=== PATIENT | female | born 1940 | race Caucasian/White ===

== ENCOUNTER 2018-09-03 18:03 | Observation (INO) ==
--- NOTE | 2018-09-03 18:44 | Emergency Department Note ---
Addendum entered and electronically signed by BRITTANI Peterson 09/03/18 20:06: Patient was set for discharge, but had severe pain when placing immobilizer and was unable to bear any weight on leg or tolerate any movement. Decision was made to admit for pain control. Spoke with Dr Paige and Dr Ram, as well as Allyson Naqvi in care management. [place]: [facility] [place] Clinical Impression: Left patella fracture Qualifiers: Encounter type: initial encounter Fracture type: closed Fracture morphology: transverse Fracture alignment: displaced Qualified Code(s): S82.032A - Displaced transverse fracture of left patella, initial encounter for closed fracture Disposition: Home, Self-Care Condition on Discharge: Good Instructions: DI for Patella Fracture Referrals: Wenceslao Moseley MD [Primary Care Provider] - Charley Nicole MD [Staff Physician] - Time of Disposition: 19:29 Medical Decision Making - Adrian Inquiry Pt receiving controlled substance: No Vital Signs: 09/03/18 18:16 09/03/18 18:27 Temperature 97.9 F 97.9 F Temperature Source Tympanic Tympanic Pulse Rate [Right Radial] 88 88 Respiratory Rate 16 16 Blood Pressure [Right Arm] 149/94 H 149/94 H Blood Pressure Mean [Right Arm] 112 112 Blood Pressure Source [Right Arm] Automatic Cuff Blood Pressure Position [Right Arm] Sitting 02 Sat by Pulse Oximetry 98 98 Oxygen Delivery Method Room Air Room Air Orders (Tests/Meds): ORDERS Category Date Time Status XR knee LT 3V Stat Exams 09/03/18 18:27 Taken - Radiology Data #1 Image(s): Knee Image Reviewed: Yes I reviewed the patient's radiology image, Yes I reviewed the patient's radiology image w/the ED provider fracture patella - Physician Consults Physician Consulted: Bonnie Time: 19:10 Reason -: Orthopedic Eval/Care Comment/Response: Will see patient Wednesday [facility] [place] - General Stated complaint: AO [id number] @1630 L Knee Time Seen by Provider: 09/03/18 19:00 Mode of Arrival: Family Vehicle Source of Information: Patient Limitations: No Limitations Description of Symptoms (Recalled from Triage Doc. by RN): pt states she was looking at recipes in her kitchen and turned and fell on her left knee. pt reports pain with weight bearing. HEENT Symptoms (Recalled from RN notes): No Resp Symptoms (Recalled from RN notes): No Skin Symptoms (Recalled from RN notes): No MS Symptoms (Recalled from RN notes): Yes Functional Status (Recalled from RN notes): N/A - History of Present Illness Provider Complaint: Left knee pain since 1629 - looking at recipes, turned and fell on left knee. Has injured left knee a few times over the past 2 years. Onset (ago): hour(s) (3) Location: left, lower extremity Relieving factors: immobilization Exacerbating factors: movement Treatments prior to arrival: NSAID - Related Data Allergies Allergy/AdvReac Type Severity Reaction Status Date / Time No Known Allergies Allergy Verified 09/03/18 18:30 - Worker's Comp Is this a Worker's Comp case?: No [facility] History - Hepatitis A Screen Drug use history?: No High risk sexual behaviors?: No History of sexually transmitted infection?: No Currently employed?: No Childcare worker?: No Do you have indoor plumbing?: Yes Do you have electricity?: Yes Attestation statement:: This patient has been screened for Hepatitis A risk factors. I have reviewed the patient's past medical history: Yes Other Surgeries: Yes: No Previous Surgery - Social History Smoking Status: Never smoker Alcohol Intake: never Substance Use Type: denies use Occupational Status: retired Housing: house Household Members: family - Psychiatric History Expresses thoughts of harming self/others: None Suicide Plan Description: No Plan Family Hx:: No significant family history ROS Obtained: Yes All systems reviewed & no additional complaints - Musculoskeletal Musculoskeletal: Reports joint pain Physical Exam - General General appearance: alert, in no apparent distress - Head Head exam: atraumatic, normocephalic - Respiratory Respiratory exam: Present: normal lung sounds bilaterally. Absent: respiratory distress - Cardiovascular Cardiovascular exam: Present: regular rate, normal rhythm - Expanded Lower Extremity Exam Left Knee exam: Present: tenderness, swelling, ecchymosis - Neurological Exam Neurological exam: Present: alert, oriented X3 - Psychiatric Psychiatric exam: Present: normal affect, normal mood - Skin Skin exam: Present: warm, dry
[2018-09-03 22:04] LABS: Basophils % 0.3 % (0.1-2.0); Eosinophils % 0.3 % (0.1-12.0); Hemoglobin 11.9 g/dL (12.2-16.2); Lymphocytes # 1.4 K/mm3 (0.7-4.5); Mean Corpuscular Hemoglobin 29.4 pg (27.0-31.2); Mean Corpuscular Volume 89.1 fl (81-99); Mean Platelet Volume 7.4 fl (7.4-10.4); Monocytes # 0.3 K/mm3 (0.1-1.0); Monocytes % 4.1 % (1.7-9.3); Neutrophils # 6.5 K/mm3 (1.8-7.8); Neutrophils % 78.4 % (37.0-80.0); Platelet Count 312 K/mm3 (142-424); Red Blood Count 4.04 M/mm3 (4.20-5.40); Red Cell Distribution Width 13.5 % (11.5-17.5); White Blood Count 8.3 K/mm3 (4.8-10.8)
[2018-09-03 22:14] LABS: INR 0.97 (0.9-1.1)
--- NOTE | 2018-09-04 08:41 | History & Physical Report ---
*Admission Date: 09/03/18 *Chief complaint: left patellar fracture *History of present illness: Ms. bender is a 77-year-old white female who has generally been in good health. She takes no prescription medications on a regular basis. She was preparing a meal at home last night when she turned in the kitchen, lost her balance and fell landing on her left knee. She did not feel dizzy or lightheaded. She denies chest pain or palpitations prior to falling. She was unable to get up on her own. Her family called the ambulance and she was brought to the urgent treatment center. She was assessed and x-rays confirmed a mildly displaced left patellar fracture. She was having significant pain and her family did not feel they could care for her at home therefore she was admitted for pain management and orthopedic consultation. At the time of my exam this morning, she states she rested fairly well last night with morphine. Her knee is in an immobilizer and pain seems to be controlled. [facility] History Medical History: Denies:: Cancer, Chronic Obstructive Pulmonary Disease (COPD), Deep Vein Thrombosis, Diabetes Mellitus Type 2, MRSA, Peripheral Vascular Disease Have you ever received a pneumonia vaccine?: Yes Have you received a flu vaccine this season?: Yes Other Medical History: Denies: Anemia, Thyroid Disease Laterality Cases: Left: Other (ORIF left ankle fracture) Other Surgeries: Yes: , Other (Left mastoid surgery as a child) Amputation: No Fractures: No - *Social History Educational Level: Completed High School Smoking Status: Never smoker Alcohol Intake: never Substance Use Type: denies use Occupational Status: retired Housing: house Household Members: family Travel in the last 8 weeks: None - Psychiatric History Expresses thoughts of harming self/others: None Suicide Plan Description: No Plan *Family Hx:: No significant family history Review of Systems - Constitutional Denies fatigue, Denies headache(s), Denies weight gain, Denies weight loss - Eyes Denies change in vision - ENT Reports nasal discharge (seasonal allergies), Denies dizziness, Denies hearing loss - *Cardiovascular Denies chest pain, Denies shortness of breath, Denies irregular heart rhythm, Denies leg swelling - *Respiratory Denies chest congestion, Denies cough - *Gastrointestinal Denies abdominal pain, Denies change in bowel habits, Denies difficulty swallowing, Denies nausea - *Genitourinary Denies abnormal vaginal bleeding, Denies urinary incontinence, Denies vaginal discharge - *Musculoskeletal Denies joint pain, Denies joint swelling, Denies muscle weakness - Integumentary/Breasts Denies hair loss, Denies yellowing of the skin, Denies unusual bruising - *Neurologic Denies dizziness, Denies loss of vision, Denies tingling/numbness/burning sensations - Psychiatric Denies anxiety, Denies depression, Denies memory loss - Endocrine Denies cold intolerance, Denies heat intolerance - Hematologic/Lymphatic Denies easy bruising - Allergic/Immunologic Reports seasonal runny nose, Denies itchy eyes, Denies hives, Denies wheezing Meds Allergies Allergy/AdvReac Type Severity Reaction Status Date / Time No Known Allergies Allergy Verified 09/03/18 18:30 Exam Vital signs and Labs for Last 24 Hours: Temp Pulse Resp BP Pulse Ox 98.4 F 83 16 108/58 L 98 09/04/18 08:00 09/04/18 08:00 09/04/18 08:00 09/04/18 08:00 09/04/18 08:00 Laboratory Results - last 24 hr 09/03/18 21:50: WBC 8.3, RBC 4.04 L, Hgb 11.9 L, Hct 36.0 L, MCV 89.1, MCH 29.4, MCHC 33.0, RDW 13.5, Plt Count 312, MPV 7.4, Neut % (Auto) 78.4, Lymph % (Auto) 17.0, Sequoyah % (Auto) 4.1, Eos % (Auto) 0.3, Baso % (Auto) 0.3, Neut # (Auto) 6.5, Lymph # (Auto) 1.4, Sequoyah # (Auto) 0.3, Eos # (Auto) 0.0, Baso # (Auto) 0.0 09/03/18 21:50: PT 10.0, INR 0.97 I & O for Last 24 hours: Intake & Output 09/01/18 09/02/18 09/03/18 09/04/18 11:59 11:59 11:59 11:59 Output Total 200 / 200 Balance -200 / -200 Weight 121 lb 4 oz Narrative: She is sitting up in bed and appears in no acute distress. She is alert and oriented to person place and time. HEENT shows a cranium to be atraumatic and normocephalic. Sclerae and conjunctive are clear. Nares patent. Oropharynx is clear. Mucous membranes are moist. Neck is supple with no masses, thyromegaly, or bruits. Lungs are clear to auscultation. Heart is regular with no ectopy. Abdomen is soft and nondistended with no unusual masses or tenderness. Lower extremities show the left leg in a knee immobilizer. No pedal edema. Assessment and Plan (1) Left patella fracture Current visit: Yes Status: Acute Qualifiers: Encounter type: initial encounter Fracture type: closed Fracture morphology: transverse Fracture alignment: displaced Qualified Code(s): S82.032A - Displaced transverse fracture of left patella, initial encounter for closed fracture Category: Medical Code(s): S82.002A - Unspecified fracture of left patella, initial encounter for closed fracture - Assessment and plan all Dx Assessment and Plan for all problems:: She is admitted for pain management and seems to be comfortable with current treatment. Will start Lovenox for DVT prophylaxis. She will remain in the knee immobilizer and will obtain orthopedic consult for further recommendations.
[2018-09-04 09:29] LABS: Anion Gap 12.6 mEq/L (5-15); Calcium 8.7 mg/dL (8.5-10.1); Potassium 3.6 mmoL/L (3.5-5.1)
--- NOTE | 2018-09-04 11:10 | Consult Report ---
*Admission Date: 09/03/18 *Chief complaint: L knee pain, inability to ambulate *History of present illness: 77yo F s/p fall yesterday at home, now with L knee pain and inability to ambulate. She was standing in her kitchen looking at recipes, when she turned and fell onto the left knee. She had no preceding dizziness/lightheadedness, no chest pain or shortness of breath. It appears the knee gave out and she landed directly onto the patella. She has fallen on that knee a handful of times in the past few years, but has not sustained a significant injury until now. Pain is localized to the anterior aspect of the left knee, with an effusion. No ecchymosis, abrasions or other skin lesions/open wounds. Denies numbness or tingling in the LLE, no pain in any other extremity. She did not hit her head or have LOC. She is otherwise healthy and takes no prescription medications; she only takes vitamins. She is a non-smoker and does not consume alcohol or illicit drugs. She denies medication allergies that she is aware of. She lives with her son and [id number], in a furnished in-law suite in their basement. She has a fully-functioning apartment down there, all on one level, with her own separate entrance. She says there are no steps to get into her apartment. She helps babysit her grandchildren while their parents work, and is concerned about their ability to care for her during her recovery, as they both work full-time jobs. Review of Systems - Review of Systems Review of systems:: pertinent systems reviewed and negative unless documented below [facility] History Medical History: Denies:: Cancer, Diabetes Mellitus Type 1, Diabetes Mellitus Type 2, MRSA Have you ever received a pneumonia vaccine?: Yes Have you received a flu vaccine this season?: Yes Comment:: seasonal allergies Laterality Cases: Left: Other Other Surgeries: Yes: Other (Left ankle hardward placement and removal) Amputation: No Fractures: Yes (surgery for ankle fracture with later removal of hardware) - *Social History Educational Level: Completed High School Smoking Status: Never smoker Alcohol Intake: never Substance Use Type: denies use Occupational Status: retired Housing: house Household Members: family Travel in the last 8 weeks: None - Psychiatric History Expresses thoughts of harming self/others: None Suicide Plan Description: No Plan *Family Hx:: No significant family history Meds Allergies Allergy/AdvReac Type Severity Reaction Status Date / Time No Known Allergies Allergy Verified 09/03/18 18:30 Exam Vital signs and Labs for Last 24 Hours: Temp Pulse Resp BP Pulse Ox 98.4 F 83 16 108/58 L 98 09/04/18 08:00 09/04/18 08:00 09/04/18 08:00 09/04/18 08:00 09/04/18 08:00 Laboratory Results - last 24 hr 09/03/18 21:50: WBC 8.3, RBC 4.04 L, Hgb 11.9 L, Hct 36.0 L, MCV 89.1, MCH 29.4, MCHC 33.0, RDW 13.5, Plt Count 312, MPV 7.4, Neut % (Auto) 78.4, Lymph % (Auto) 17.0, Esmeralda % (Auto) 4.1, Eos % (Auto) 0.3, Baso % (Auto) 0.3, Neut # (Auto) 6.5, Lymph # (Auto) 1.4, Esmeralda # (Auto) 0.3, Eos # (Auto) 0.0, Baso # (Auto) 0.0 09/03/18 21:50: PT 10.0, INR 0.97 09/04/18 09:16: Sodium 142, Potassium 3.6, Chloride 106, Carbon Dioxide 27, Anion Gap 12.6, BUN 14, Creatinine 0.94, Estimated Creat Clear 42, Estimated GFR 58 L, Est GFR ( Amer) 70, Glucose 105, Calcium 8.7 I & O for Last 24 hours: Intake & Output 09/01/18 09/02/18 09/03/18 09/04/18 11:59 11:59 11:59 11:59 Intake Total 60 / 60 Output Total 200 / 200 Balance -140 / -140 Weight 121 lb 4 oz - Constitutional no acute distress, average body habitus, cooperative - *Routine HEENT Exam Head: Present: normocephalic, atraumatic Eye: Present: EOMI ENT: Present: mucous membranes moist - *Routine Neck Exam Present: supple - *Routine Respiratory Exam Present: CTA bilaterally. Absent: accessory muscle use, wheezes - *Routine Cardiovascular Exam Present: RRR - *Routine Abdominal Exam Present: soft. Absent: tenderness - *Routine Extremities Exam Present: pulses intact, normal capillary refill, joint swelling. Absent: full ROM, calf tenderness Comments: LLE: L knee effusion (hemarthrosis); no skin lesions, ecchymosis, lacerations/abrasions or other open wounds unable to perform a L straight leg raise; extensor mechanism is disrupted exquisitely tender over L patella, with palpable defect in the bone +DF/PF/EHL LLE L calf soft, non-tender SILT distally LLE in all distributions palpable pedal pulses LLE, foot warm with BCR - *Routine Skin Exam Present: intact, warm. Absent: erythema, lesions, wounds, ecchymosis - *Routine Neurological Exam Present: alert, oriented X3, normal tone, vision grossly intact, hearing grossly intact. Absent: sensory deficit, motor deficit, altered mental status - Routine Psychiatric Exam Present: normal affect, normal thought process, cooperative, good insight, good judgment Results - Labs Result Diagrams: 09/03/18 21:50 09/04/18 09:16 Labs: Abnormal lab results 09/03/18 09/04/18 Range/Units 21:50 09:16 RBC 4.04 L (4.20-5.40) M/mm3 Hgb 11.9 L (12.2-16.2) g/dL Hct 36.0 L (37.0-47.0) % Estimated GFR 58 L (>60) ml/min H & H 09/03/18 Range/Units 21:50 Hgb 11.9 L (12.2-16.2) g/dL Hct 36.0 L (37.0-47.0) % Coagulation 09/03/18 Range/Units 21:50 INR 0.97 (0.9-1.1) All other labs normal. - Diagnostic results Knee x-ray: report reviewed, image reviewed (transverse fracture of patella with mild displacement of fragments) Assessment and Plan (1) Left patella fracture Current visit: Yes Status: Acute Qualifiers: Encounter type: initial encounter Fracture type: closed Fracture morphology: transverse Fracture alignment: displaced Qualified Code(s): S82.032A - Displaced transverse fracture of left patella, initial encounter for closed fracture Category: Medical Code(s): S82.002A - Unspecified fracture of left patella, initial encounter for closed fracture - Assessment and plan all Dx Assessment and Plan for all problems:: 77yo F with L patella fracture, mildly displaced, with disruption of extensor mechanism (i.e. cannot perform straight leg raise) -- the fracture is displaced, and although not by much, she cannot perform a straight leg raise and I do not believe this will heal well non-operatively; even if it does, it will likely be a fibrous non-union and/or the patient will have persistent extensor mechanism dysfunction. I am recommending ORIF, to be done tomorrow. I discussed the procedure with the patient, including the risks, which include: bleeding, infection, wound healing complications, non-union, hardware failure, persistent knee pain/leg weakness, painful hardware that may necessitate later removal, and the risks of anesthesia. The patient vocalized understanding and would like to proceed with surgery. -- NPO after midnight -- stop lovenox in the morning; i.e. hold after tonight's dose -- Ancef 1g on hold to OR -- am labs -- dispo planning: will likely need placement post-op for PT/OT and fci care
--- NOTE | 2018-09-04 14:13 | Pharmacy Consult Notes ---
[facility] Pharmacy VTE Monitoring - Patient Demographics Admission date: 09/03/18 Report Date: 09/04/18 Time: 14:12 Allergies/Adverse Reactions: Patient Allergies No Known Allergies Allergy (Verified 09/03/18 18:30) Height: 1.65 m Weight: 54.998 kg Patient Problems: Current Active Problems Left patella fracture (Acute) - VTE Risk Labs: VTE Related Lab Results Hgb 11.9 g/dL (12.2-16.2) L 09/03/18 21:50 Hct 36.0 % (37.0-47.0) L 09/03/18 21:50 Plt Count 312 K/mm3 (142-424) 09/03/18 21:50 PT 10.0 seconds (9.4-11.8) 09/03/18 21:50 INR 0.97 (0.9-1.1) 09/03/18 21:50 BUN 14 mg/dL (7-18) 09/04/18 09:16 Creatinine 0.94 mg/dL (0.55-1.02) 09/04/18 09:16 Estimated Creat Clear 42 mL/min (50-200) 09/04/18 09:16 Was VTE Risk Assessment Performed: No VTE Score: 1 - Prophylaxis VTE Prophylaxis Ordered?: Yes Types of VTE Prophylaxis: IPCS Thigh High Location of Applied Device: Bilateral Lower Extremeties
[2018-09-05 06:34] LABS: Anion Gap 10.6 mEq/L (5-15); Calcium 8.2 mg/dL (8.5-10.1); Potassium 3.6 mmoL/L (3.5-5.1)
[2018-09-05 06:35] LABS: Activated Partial Thrombo Time 25.1 seconds (23.6-34.0); INR 0.95 (0.9-1.1); Prothrombin Time 9.8 seconds (9.4-11.8)
[2018-09-05 06:40] LABS: Basophils % 0.8 % (0.1-2.0); Eosinophils # 0.2 K/mm3 (0.0-0.4); Eosinophils % 3.5 % (0.1-12.0); Hemoglobin 10.5 g/dL (12.2-16.2); Lymphocytes # 1.6 K/mm3 (0.7-4.5); Lymphocytes % 32.4 % (10-50); Mean Corpuscular HGB Conc 31.8 g/dL (31.8-35.4); Mean Corpuscular Volume 91.3 fl (81-99); Monocytes # 0.3 K/mm3 (0.1-1.0); Monocytes % 5.4 % (1.7-9.3); Neutrophils # 2.9 K/mm3 (1.8-7.8); Neutrophils % 57.8 % (37.0-80.0); Platelet Count 240 K/mm3 (142-424); Red Blood Count 3.62 M/mm3 (4.20-5.40); Red Cell Distribution Width 13.5 % (11.5-17.5)
--- NOTE | 2018-09-05 08:07 | Progress Note ---
<Jayla Doyle - Last Filed: 09/05/18 08:03> Internal Medicine - PN: Subj *Date: 09/05/18 *Time: 08:03 Interval history: Patient is having surgery today. She slept like last night. Pain in left knee with any movement. She does get up and down to the commode and states the pain is excruciating when this. She is eating without problems. She has no shortness of breath or chest pain. Exam Vital signs and Labs for Last 24 Hours: Temp Pulse Resp BP Pulse Ox 97.8 F 66 18 142/67 H 99 09/05/18 07:28 09/05/18 07:28 09/05/18 07:28 09/05/18 07:28 09/05/18 07:28 Laboratory Results - last 24 hr 09/04/18 09:16: Sodium 142, Potassium 3.6, Chloride 106, Carbon Dioxide 27, Anion Gap 12.6, BUN 14, Creatinine 0.94, Estimated Creat Clear 42, Estimated GFR 58 L, Est GFR ( Amer) 70, Glucose 105, Calcium 8.7 09/04/18 11:49: Blood Type O Positive, Antibody Screen Negative 09/05/18 06:08: WBC 5.0 D, RBC 3.62 L, Hgb 10.5 L, Hct 33.0 L, MCV 91.3, MCH 29.0, MCHC 31.8, RDW 13.5, Plt Count 240, MPV 7.0 L, Neut % (Auto) 57.8, Lymph % (Auto) 32.4, Beauregard % (Auto) 5.4, Eos % (Auto) 3.5, Baso % (Auto) 0.8, Neut # (Auto) 2.9, Lymph # (Auto) 1.6, Beauregard # (Auto) 0.3, Eos # (Auto) 0.2, Baso # (Auto) 0.0 09/05/18 06:08: PT 9.8, INR 0.95, APTT 25.1 09/05/18 06:08: Sodium 141, Potassium 3.6, Chloride 108 H, Carbon Dioxide 26, Anion Gap 10.6, BUN 14, Creatinine 0.74 D, Estimated Creat Clear 42, Estimated GFR 77, Est GFR ( Amer) 93 D, Glucose 89, Calcium 8.2 L I & O for Last 24 hours: Intake & Output 09/02/18 09/03/18 09/04/18 09/05/18 11:59 11:59 11:59 11:59 Intake Total 60 / 60 1200 / 1200 Output Total 200 / 200 200 / 200 Balance -140 / -140 1000 / 1000 Weight 121 lb 4 oz 121 lb 4 oz - Constitutional no acute distress - *Routine Respiratory Exam Present: CTA bilaterally (Anteriorly and posteriorly) - *Routine Cardiovascular Exam Present: RRR - *Routine Abdominal Exam Present: soft, normoactive bowel sounds. Absent: tenderness - *Routine Extremities Exam Absent: edema Comments: Leg edema. Moves toes left lower extremity without difficulty. He is to have brace on left knee with elevation and ice. - *Routine Neurological Exam Present: alert, oriented X3 Assessment and Plan (1) Left patella fracture Current visit: Yes Status: Acute Qualifiers: Encounter type: initial encounter Fracture type: closed Fracture morphology: transverse Fracture alignment: displaced Qualified Code(s): S82.032A - Displaced transverse fracture of left patella, initial encounter for closed fracture Category: Medical Code(s): S82.002A - Unspecified fracture of left patella, initial encounter for closed fracture - Assessment and plan all Dx Assessment and Plan for all problems:: Surgery is planned by Dr. Nicole today. Maintain comfort. <Wenceslao Moseley - Last Filed: 09/05/18 08:18> Exam Vital signs and Labs for Last 24 Hours: Temp Pulse Resp BP Pulse Ox 97.8 F 66 18 142/67 H 99 09/05/18 07:28 09/05/18 07:28 09/05/18 07:28 09/05/18 07:28 09/05/18 07:28 Laboratory Results - last 24 hr 09/04/18 09:16: Sodium 142, Potassium 3.6, Chloride 106, Carbon Dioxide 27, Anion Gap 12.6, BUN 14, Creatinine 0.94, Estimated Creat Clear 42, Estimated GFR 58 L, Est GFR ( Amer) 70, Glucose 105, Calcium 8.7 09/04/18 11:49: Blood Type O Positive, Antibody Screen Negative 09/05/18 06:08: WBC 5.0 D, RBC 3.62 L, Hgb 10.5 L, Hct 33.0 L, MCV 91.3, MCH 29.0, MCHC 31.8, RDW 13.5, Plt Count 240, MPV 7.0 L, Neut % (Auto) 57.8, Lymph % (Auto) 32.4, Beauregard % (Auto) 5.4, Eos % (Auto) 3.5, Baso % (Auto) 0.8, Neut # (Auto) 2.9, Lymph # (Auto) 1.6, Beauregard # (Auto) 0.3, Eos # (Auto) 0.2, Baso # (Auto) 0.0 09/05/18 06:08: PT 9.8, INR 0.95, APTT 25.1 09/05/18 06:08: Sodium 141, Potassium 3.6, Chloride 108 H, Carbon Dioxide 26, Anion Gap 10.6, BUN 14, Creatinine 0.74 D, Estimated Creat Clear 42, Estimated GFR 77, Est GFR ( Amer) 93 D, Glucose 89, Calcium 8.2 L I & O for Last 24 hours: Intake & Output 09/02/18 09/03/18 09/04/18 09/05/18 11:59 11:59 11:59 11:59 Intake Total 60 / 60 1200 / 1200 Output Total 200 / 200 200 / 200 Balance -140 / -140 1000 / 1000 Weight 121 lb 4 oz 121 lb 4 oz Assessment and Plan (1) Left patella fracture Current visit: Yes Status: Acute Qualifiers: Encounter type: initial encounter Fracture type: closed Fracture morphology: transverse Fracture alignment: displaced Qualified Code(s): S8 2.032A - Displaced transverse fracture of left patella, initial encounter for closed fracture Category: Medical Code(s): S82.002A - Unspecified fracture of left patella, initial encounter for closed fracture - Assessment and plan all Dx Assessment and Plan for all problems:: Patient seen and examined. Concur with above assessment. She is comfortable at rest. She is an acceptable medical risk to proceed with surgery today.
--- NOTE | 2018-09-05 15:09 | Progress Note ---
[facility] Anesthesia Checklist - Patient Identification Patient Identification: Arm Band - Structural Data Admitted From: Inpatient Planned Operative Procedure/s: orif left patella Consent for Planned Operative Procedure(s) Verified: Yes Verified Documents: Surgical Consent, History and Physical - NPO Status Verified Time NPO: 00:00 - Additional verifications Anesthesia Reactions: No - Airway Assessment C-Spine Mobility Assessed: Yes (mp2) TMJ Mobility Assessed: Yes Dentition: Poor Dentition (risks of dental damage explained to pt) - Neurological Assessment Level of Consciousness: Awake, Alert - Anesthesia Plan Anesthesia Risk discussed: Yes Anesthesia Plan: Verified ASA Class: II Anesthesia Type: General (with Femoral Nerve Block) [facility] History I have reviewed the patient's past medical history: Yes Medical History: Denies:: Cancer, Chronic Obstructive Pulmonary Disease (COPD), Deep Vein Thrombosis, Diabetes Mellitus Type 1, Diabetes Mellitus Type 2, MRSA, Peripheral Vascular Disease Have you ever received a pneumonia vaccine?: Yes Have you received a flu vaccine this season?: Yes Other Medical History: Denies: Anemia, Thyroid Disease Laterality Cases: Left: Other (ORIF left ankle fracture) Other Surgeries: Yes: , Other (Left mastoid surgery as a child) Amputation: No Fractures: No - *Social History Educational Level: Completed High School Smoking Status: Never smoker Alcohol Intake: never Substance Use Type: denies use Occupational Status: retired Housing: house Household Members: family Travel in the last 8 weeks: None - Psychiatric History Expresses thoughts of harming self/others: None Suicide Plan Description: No Plan *Family Hx:: No significant family history
--- NOTE | 2018-09-05 18:44 | Progress Note ---
[facility] Anesthesia Record Part II Discharge Time: 17:10 Destination: 2nd floor PACU nurse assessment reviewed?: Yes Patient Condition:: Good Anesthesia Complications:: None Swallowing reflex intact?: Yes Cyanosis?: No
--- NOTE | 2018-09-05 18:44 | Progress Note ---
[facility] Anesthesia Record Part I Intake, IV Amount: 1,600 Estimated blood loss (mL): 50 Urine output (mL): 0 Blood Pressure: 143/71 SaO2: 95 Pulse Rate: 72 Respiratory Rate: 16 Temperature: 98.6 F Patient is:: Drowsy, Stable Stable to PACU at:: 18:40
--- NOTE | 2018-09-05 22:55 | Operative Note ---
Date of procedure: 09/05/18 Pre-op Diagnosis:: Left patella fracture Post-op Diagnosis:: Left patella fracture Procedure performed:: ORIF left patella fracture Surgeon:: Charley Nicole MD Assessment Services Manager(s):: Nolan Graham SHIFT PRODUCTION SUPERVISOR:: Chris Pantoja Anesthesia: GETA, regional Estimated blood loss (mL): 50 Clinical Note:: 77-year-old female who sustained a mechanical fall at home on the evening of 09/03/2017. She was in her kitchen looking at recipes when she turned and the left knee gave out. She landed directly on the flexed left knee, fracturing her patella. This was a transverse, complete fracture of the patella with mild displacement of both fragments and disruption of the extensor mechanism. She was unable to perform even a partial straight leg raise. I discussed treatment options with her including both nonoperative and operative treatment, and my recommendation was that we proceed with ORIF. I felt this was the best way to restore her extensor mechanism and allow her to regain use of her previously asymptomatic knee. She is in excellent health and takes no daily medications, only vitamins. I discussed the risks of surgery including bleeding, infection, nonunion, symptomatic hardware or hardware failure, need for further surgery including possible need for hardware removal if symptomatic, possibility of persistent weakness or limp after surgery, and risks of anesthesia. The patient vocalized understanding and provided informed consent for the procedure. Operative findings:: Transverse fracture of left patella Operative note:: The patient was identified in preoperative holding and the left knee signed by myself. I reviewed the consent and verified the procedure with the patient, answering any questions. Femoral nerve block was then performed to the left lower extremity by anesthesia. The patient was then transferred to the operat ing room placed supine on the OR table. 1 g of Ancef was infused intravenously and general anesthesia induced. Once the patient was anesthetized, a nonsterile tourniquet was placed on the upper left thigh. The left lower extremity was then prepped and draped in the usual sterile fashion for surgery of the left knee. Timeout was performed, identifying the correct patient, correct procedure, and correct site. The procedure was begun by first exsanguinating the left lower extremity and elevating the tourniquet to 325 mmHg. Once the tourniquet was inflated, a longitudinal incision was made down the anterior aspect of the left knee, centered over the patella and extending from 2 fingerbreadths superior to the patella and extending to the tibial tubercle. The incision was made with a #10 scalpel, incising only the skin. Once the skin had been incised, the superficial tissue was identified and it was immediately evident that the extensor retinaculum was intact. The patella was palpated, and a transverse fracture obvious. Limited flaps were raised medially and laterally, exposing the entire extensor mechanism including the patella, the medial lateral retinaculum, and the quadriceps and patellar tendons. [place] elevator was inserted into the fracture site and this easily penetrated into the joint. Using a tissue forceps and fresh 15 blade, the retinaculum was incised directly over the fracture site and carried medially and laterally, opening up the fracture site. The retinaculum was opened to an extent both medially and laterally to the patella, and this enabled me to open the fracture site and examined the articular surface of the patella. All cartilage on the articular surface was intact and the joint appeared in very good condition. From this position I was able to suction all hemarthrosis from the knee, which was mild. The joint and the fracture site were then copiously irrigated with sterile saline and dried with a lap sponge. The fracture site was fairly simple, transverse with no comminution, impaction or small fracture fragments. A pointed reduction forcep was then used to assist with reduction of the fracture. Both ends of the patella were reapproximated and a clamp applied to the superior and inferior poles of the patella; with gentle pressure the fracture was reduced and compressed. Adequate reduction was confirmed on both AP and lateral views using the C arm. 2 provide interfragmentary fixation/compression of the fracture, I decided to place 2 4.0mm cannulated screws and through this placed an 18-gauge wire in a [id number]-[id number] tension band construct. Two small 1.25 mm threaded guide wires were then passed from proximally to distally, from the superior to inferior pole of the patella, and desired location of my screws. This was done splitting the patella into the proximal thirds on AP view, and was just slightly anterior to the midline of the patella on the lateral view. The desired cannulated screw lengths were then determined using a measuring tool placed over each guidepin. I chose a screw length slightly smaller than that of the guide pins, so as not to penetrate the far cortex of the distal fracture fragment, and to allow for some compression at the fracture site. It was determined that both screws would be 32 mm in length. A 2.7 mm cannulated drill bit was placed over each guidepin and drilled until both proximal and distal fracture fragments were drilled. Over these guide pins, my cannulated screws were then placed and advanced; over each pin I inserted a 32 mm long, 4.0 mm diameter partially threaded cannulated screw from the [employer] cannulated screw set. These were partially threaded with short threads. As each screw was passed, I could feel the grabbing the far cortex of the fracture and compressing the fracture site. Both guide pins were then removed and satisfactory fixation confirmed with C-arm. To augment this fixation, I next placed an 18-gauge wire in a tension band fashion. To do this, to short length of 18-gauge wire were then passed through each cannulated screw from proximal to distal down the center of the screw. Once each wire had been passed, the proximal and distal limb from alternating wires were gathered together in a crossing fashion, essentially forming a [id number]. Each wire repair was then clamped with a heavy needle automation driver and twisted in a clockwise fashion, gradually providing compression/tension banding of the fracture site. This was done at the same time so as to evenly provide compression across the fracture site. Once appropriate tension had been placed on the fracture, the wires were cut short and folded over and impacted down onto the patella so as this would not be felt externally. This essentially completed the case and tourniquet was dropped; hemostasis achieved with Bovie cautery. The wound was copiously irrigated once more with saline and closed in a layered fashion. A 2-0 FiberWire was used to close the medial and lateral retinacula. This was augmented with 0 Ethibond. Deep subcutaneous tissue was closed in a layered fashion over the hardware using 0 Ethibond and 0 Vicryl. Next subcutaneous tissue was closed with a 2-0 Vicryl and the skin closed with meagan. The leg was then cleansed with a wet lap, dried and sterile dressings applied; Xeroform, 4 x 4's, ABDs, web roll and John wrap. The patient was wrapped from her toes to her upper thigh and a knee immobilizer placed. The surgery was performed with the knee in extension on a bone foam; it was then immediately placed in a knee immobilizer. She will remain nonweightbearing and not allowed to bend the knee. The patient was then awoken from anesthesia, extubated and transferred to her bed in good condition. She was transferred to PACU and will be taken back to the [facility] floor for continued postoperative care and rehabilitation/disposition planning. The patient tolerated this procedure very well, awoke with no pain, was medically stable for the entire case, and there were no complications. Tourniquet time (min): 120 Condition: stable Disposition: PACU Specimens:: none Complications:: none
[2018-09-06 07:09] LABS: Anion Gap 10.5 mEq/L (5-15); Potassium 3.5 mmoL/L (3.5-5.1)
[2018-09-06 07:20] LABS: Basophils % 0.1 % (0.1-2.0); Eosinophils % 0.1 % (0.1-12.0); Hematocrit 32.8 % (37.0-47.0); Hemoglobin 10.9 g/dL (12.2-16.2); Lymphocytes # 1.1 K/mm3 (0.7-4.5); Lymphocytes % 10.7 % (10-50); Mean Corpuscular HGB Conc 33.2 g/dL (31.8-35.4); Mean Corpuscular Hemoglobin 29.4 pg (27.0-31.2); Mean Corpuscular Volume 88.6 fl (81-99); Mean Platelet Volume 7.5 fl (7.4-10.4); Monocytes # 0.6 K/mm3 (0.1-1.0); Monocytes % 5.9 % (1.7-9.3); Neutrophils # 8.4 K/mm3 (1.8-7.8); Neutrophils % 83.2 % (37.0-80.0); Platelet Count 262 K/mm3 (142-424); Red Blood Count 3.71 M/mm3 (4.20-5.40); Red Cell Distribution Width 13.4 % (11.5-17.5); White Blood Count 10.1 K/mm3 (4.8-10.8)
[2018-09-06 07:35] LABS: Calcium 9.2 mg/dL (8.5-10.1)
--- NOTE | 2018-09-06 08:52 | Progress Note ---
<Jayla Doyle - Last Filed: 09/06/18 08:49> Internal Medicine - PN: Subj *Date: 09/06/18 *Time: 08:49 Interval history: Today finally patient has had little sleep. She has had some pain medicine this morning after a bath in Box change. Clear liquids this morning without nausea. She is voiding QS Exam Vital signs and Labs for Last 24 Hours: Temp Pulse Resp BP Pulse Ox 98.4 F 82 15 115/50 L 96 09/06/18 08:00 09/06/18 08:00 09/06/18 08:00 09/06/18 08:00 09/06/18 08:00 Laboratory Results - last 24 hr 09/06/18 06:35: WBC 10.1 D, RBC 3.71 L, Hgb 10.9 L, Hct 32.8 L, MCV 88.6, MCH 29.4, MCHC 33.2, RDW 13.4, Plt Count 262, MPV 7.5, Neut % (Auto) 83.2 H, Lymph % (Auto) 10.7, Granite % (Auto) 5.9, Eos % (Auto) 0.1, Baso % (Auto) 0.1, Neut # (Auto) 8.4 H, Lymph # (Auto) 1.1, Granite # (Auto) 0.6, Eos # (Auto) 0.0, Baso # (Auto) 0.0 09/06/18 06:35: Sodium 141, Potassium 3.5, Chloride 106, Carbon Dioxide 28, Anion Gap 10.5, BUN 10 D, Creatinine 0.89 D, Estimated Creat Clear 42, Estimated GFR 62, Est GFR ( Amer) 75, Glucose 114 H, Calcium 9.2 D I & O for Last 24 hours: Intake & Output 09/03/18 09/04/18 09/05/18 09/06/18 11:59 11:59 11:59 11:59 Intake Total 60 / 60 1702 / 1702 2520 / 2520 Output Total 200 / 200 200 / 200 2100 / 2100 Balance -140 / -140 1502 / 1502 420 / 420 Weight 121 lb 4 oz 121 lb 4 oz Radiology Reports for the Last 24 Hours: 09/05/2018 in the left knee x-ray IMPRESSION: Good alignment status post ORIF patellar fracture - Constitutional no acute distress Comments: Awake and alert and appears comfortable - *Routine Respiratory Exam Present: CTA bilaterally (Anteriorly and posteriorly) - *Routine Cardiovascular Exam Present: RRR - *Routine Abdominal Exam Present: soft, normoactive bowel sounds. Absent: tenderness - *Routine Extremities Exam Comments: Left leg elevated on a pillow with ice around the knee. Knee in a soft splint. Toes are cool. No edema. Right leg without edema and no calf tenderness - *Routine Neurological Exam Present: alert, oriented X3 Assessment and Plan (1) Left patella fracture Current visit: Yes Status: Acute Qualifiers: Encounter type: initial encounter Fracture type: closed Fracture morphology: transverse Fracture alignment: displaced Qualified Code(s): S82.032A - Displaced transverse fracture of left patella, initial encounter for closed fracture Category: Medical Code(s): S82.002A - Unspecified fracture of left patella, initial encounter for closed fracture (2) Postoperative pain of knee Current visit: Yes Status: Acute Category: Medical Code(s): G89.18 - Other acute postprocedural pain; M25.569 - Pain in unspecified knee (3) Postoperative state Current visit: Yes Status: Acute Category: Medical Code(s): Z98.890 - Other specified postprocedural states - Assessment and plan all Dx Assessment and Plan for all problems:: Continue with postoperative care as per Dr. Nicole. Physical therapy to see patient. Disposition briefly discussed with patient. <Wenceslao Moseley - Last Filed: 09/06/18 14:03> Exam Vital signs and Labs for Last 24 Hours: Temp Pulse Resp BP Pulse Ox 98.2 F 72 17 109/57 L 100 09/06/18 11:55 09/06/18 11:55 09/06/18 11:55 09/06/18 11:55 09/06/18 11:55 Laboratory Results - last 24 hr 09/06/18 06:35: WBC 10.1 D, RBC 3.71 L, Hgb 10.9 L, Hct 32.8 L, MCV 88.6, MCH 29.4, MCHC 33.2, RDW 13.4, Plt Count 262, MPV 7.5, Neut % (Auto) 83.2 H, Lymph % (Auto) 10.7, Granite % (Auto) 5.9, Eos % (Auto) 0.1, Baso % (Auto) 0.1, Neut # (Auto) 8.4 H, Lymph # (Auto) 1.1, Granite # (Auto) 0.6, Eos # (Auto) 0.0, Baso # (Auto) 0.0 09/06/18 06:35: Sodium 141, Potassium 3.5, Chloride 106, Carbon Dioxide 28, Anion Gap 10.5, BUN 10 D, Creatinine 0.89 D, Estimated Creat Clear 42, Estimated GFR 62, Est GFR ( Amer) 75, Glucose 114 H, Calcium 9.2 D I & O for Last 24 hours: Intake & Output 09/04/18 09/05/18 09/06/18 09/07/18 11:59 11:59 11:59 11:59 Intake Total 60 / 60 1702 / 1702 2520 / 2520 1561 / 1561 Output Total 200 / 200 200 / 200 2100 / 2100 Balance -140 / -140 1502 / 1502 420 / 420 1561 / 1561 Weight 121 lb 4 oz 121 lb 4 oz Assessment and Plan (1) Left patella fracture Current visit: Yes Status: Acute Qualifiers: Encounter type: initial encounter Fracture type: closed Fracture morphology: transverse Fracture alignment: displaced Qualified Code(s): S82.032A - Displaced transverse fracture of left patella, initial encounter for closed fracture Category: Medical Code(s): S82.002A - Unspecified fracture of left patella, initial encounter for closed fracture (2) Postoperative pain of knee Current visit: Yes Status: Acute Category: Medical Code(s): G89.18 - Other acute postprocedural pain; M25.569 - Pain in unspecified knee (3) Postoperative state Current visit: Yes Status: Acute Category: Medical Code(s): Z98.890 - Other specified postprocedural states - Assessment and plan all Dx Assessment and Plan for all problems:: Discussed disposition options with patient including home with Home Health vs skilled inpatient rehab. Will have Care Management make suitable arrangements when cleared for discharge by Ortho.
--- NOTE | 2018-09-06 20:29 | Discharge Summary ---
General - General Admission date:: 09/03/18 <Wenceslao Moseley - 09/08/18 18:13> 09/03/18 <Brigida Vargas - 09/06/18 20:29> Discharge date: 09/06/18 <Brigida Vargas - 09/06/18 20:29> HPI HPI: Ms. bender is a 77-year-old white female who has generally been in good health. She takes no prescription medications on a regular basis. She was preparing a meal at home last night when she turned in the kitchen, lost her balance and fell landing on her left knee. She did not feel dizzy or lightheaded. She denies chest pain or palpitations prior to falling. She was unable to get up on her own. Her family called the ambulance and she was brought to the urgent treatment center. She was assessed and x-rays confirmed a mildly displaced left patellar fracture. She was having significant pain and her family did not feel they could care for her at home therefore she was admitted for pain management and orthopedic consultation. At the time of my exam this morning, she states she rested fairly well last night with morphine. Her knee is in an immobilizer and pain seems to be controlled. <Brigida Vargas - 09/06/18 20:29> Hospital Course Hospital Course: The patient was started on Lovenox for DVT prophylaxis. She remained in a knee immobilizer and orthopedics was consulted. She was seen by Dr. Nicole who recommended ORIF. This was performed on 09/05/18. The patient tolerated the procedure well and was placed in a knee immobilizer. She will need to remain nonweightbearing and is not allowed to bend the knee. Repeat images showed good alignment status post ORIF of the patellar fracture. The patient preferred to go home with home health rather than be admitted to a senior care facility for rehab. She was stable to be discharged home and will need to follow-up with Dr. Nicole in 1 week. <Brigida Vargas - 09/06/18 20:29> Objective Vital signs: Temp Pulse Resp BP Pulse Ox 98.0 F 88 18 130/58 L 98 09/06/18 15:41 09/06/18 15:41 09/06/18 15:41 09/06/18 15:41 09/06/18 15:41 <Wenceslao Moseley - 09/08/18 18:13> Temp Pulse Resp BP Pulse Ox 98.0 F 88 18 130/58 L 98 09/06/18 15:41 09/06/18 15:41 09/06/18 15:41 09/06/18 15:41 09/06/18 15:41 <Brigida Vargas - 09/06/18 20:29> Narrative: She is sitting up in bed and appears in no acute distress. She is alert and oriented to person place and time. HEENT shows a cranium to be atraumatic and normocephalic. Sclerae and conjunctive are clear. Nares patent. Oropharynx is clear. Mucous membranes are moist. Neck is supple with no birdie s, thyromegaly, or bruits. Lungs are clear to auscultation. Heart is regular with no ectopy. Abdomen is soft and nondistended with no unusual masses or tenderness. Lower extremities show the left leg in a knee immobilizer. No pedal edema. <Brigida Vargas - 09/06/18 20:29> Results Labs on day of discharge: Labs from last 24 hours 09/06/18 09/06/18 06:35 06:35 WBC 10.1 D RBC 3.71 L Hgb 10.9 L Hct 32.8 L MCV 88.6 MCH 29.4 MCHC 33.2 RDW 13.4 Plt Count 262 MPV 7.5 Neut % (Auto) 83.2 H Lymph % (Auto) 10.7 [place] % (Auto) 5.9 Eos % (Auto) 0.1 Baso % (Auto) 0.1 Neut # (Auto) 8.4 H Lymph # (Auto) 1.1 [place] # (Auto) 0.6 Eos # (Auto) 0.0 Baso # (Auto) 0.0 Sodium 141 Potassium 3.5 Chloride 106 Carbon Dioxide 28 Anion Gap 10.5 BUN 10 D Creatinine 0.89 D Estimated Creat Clear 42 Estimated GFR 62 Est GFR ( Amer) 75 Glucose 114 H Calcium 9.2 D <Brigida Vargas - 09/06/18 20:29> DS: Diagnosis - Discharge Diagnosis (1) Left patella fracture Status: Acute (2) Postoperative pain of knee Status: Acute (3) Postoperative state Status: Acute <Brigida Vargas 09/06/18 20:21> (1) Left patella fracture Status: Acute (2) Postoperative pain of knee Status: Acute (3) Postoperative state Status: Acute <Wenceslao Moseley 09/08/18 18:13> Discharge Plan - Patient Discharge Instructions ACTIVITY: Up with assistance (Non-weightbearing LLE; knee immobilizer at all times ) <Brigida Vargas 09/06/18 20:29> DIET: continue same diet <Brigida Vargas 09/06/18 20:29> Additional Instructions: Non-weightbearing LLE, no bending knee, do not remove knee immobilizer Do not remove dressings, keep them clean and dry f/u with Dr. Nicole in 1 week prescription given for pain medication <Wenceslao Moseley 09/08/18 18:13> Patient Instructions: Patella Fracture, DI for Surgical Site Infection, Surgical Site Infection <Wenceslao Moseley 09/08/18 18:13> Forms: <Wenceslao Moseley 09/08/18 18:13> - Follow up Plan Follow up with: Charley Nicole MD [Staff Physician] - 1 week <Wenceslao Moseley 09/08/18 18:13> Disposition: Home Health Service <Wenceslao Moseley 09/08/18 18:13> Home Medications: Home Medications Medication Instructions Recorded Confirmed Type RX: Oxycodone HCl/Acetaminophen 1 each PO Q6HP PRN #30 tablet 09/06/18 Rx [Percocet 5/325mg tablet] <Wenceslao Moseley 09/08/18 18:13> Prescriptions/Medication Reconciliation: New RX: Oxycodone HCl/Acetaminophen [Percocet 5/325mg tablet] 1 each PO Q6HP PRN #30 tablet PRN Reason: Breakthru Severe Pain <Wenceslao Moseley 09/08/18 18:13> - Additional Information Additional Information: Concur with plan for discharge. <Wenceslao Moseley 09/08/18 18:13>
--- NOTE | 2018-09-07 12:32 | Progress Note ---
Subjective Date: 09/06/18 Time: 12:00 Principal diagnosis: s/p ORIF L patella fx Interval history: The patient is doing well on POD 1 s/p ORIF L patella. Pain adequately controlled with oral meds, working with PT. PN: Obj Ex Vital signs: Temp Pulse Resp BP Pulse Ox 98.0 F 88 18 130/58 L 98 09/06/18 15:41 09/06/18 15:41 09/06/18 15:41 09/06/18 15:41 09/06/18 15:41 Narrative: AAOx3, NAD LLE with knee immobilizer dressings LLE intact, no strikethrough +DF/PF/EHL distally LLE SILT distally LLE calf soft, non-tender LLE LLE warm, palpable pedal pulses no ROM knee performed s/p ORIF patella Progress Note: A&P (1) Left patella fracture Status: Acute (2) Postoperative pain of knee Status: Acute (3) Postoperative state Status: Acute Assessment and Plan for All Diagnoses:: 77yo F POD 1 s/p ORIF L patella fx -- NWB LLE, continue knee immobilizer, no ROM of knee -- ok to d/c home from ortho standpoint -- f/u in office as scheduled
== END 2018-09-06 17:11 | disposition home health service (06) ==
LOC: ER 18:03 → 2ND 18:03
PROVIDERS: ADMIT Emergency Medicine; ATTEND Family Medicine
CPT/HCPCS: 36415; 71010; 71045; 72170; 73560; 73562; 76000; 80048; 85025; 85610; 85730; 86850; 93005; 97116; 97161; 97530; 99203; C1713; G0378; J2405

== ENCOUNTER → 2018-09-16 08:41 | Outpatient (CLI) | payer MEDICARE, MEDICAID, SELFPAY ==
--- NOTE | 2018-09-16 08:45 | XR_ITS ---
XR knee LT 2V HISTORY: Follow-up ORIF of the patella ITS.REASON: Lt patella fx ORDERING PHYSICIAN: Charley Nicole MD PATIENT AGE: 77 years COMPARISON: 09/05/2018 FINDINGS: Status post ORIF patellar fracture with good alignment. 2 screws and cerclage wire remains in place. The fracture line is still visible in the mid aspect of the patella. IMPRESSION: Good alignment status post ORIF patellar fracture
== END ==
PROVIDERS: PCP Family Medicine; Visit Provider Orthopaedic Surgery
DX: S82.002A Unspecified fracture of left patella, initial encounter for closed fracture (principal)
CPT/HCPCS: 73560

== ENCOUNTER 2018-09-16 10:16 | Outpatient (RCR) | payer MEDICARE, MEDICAID, SELFPAY | END 2018-09-16 10:20 | disposition home or self-care (01) | LOC: PT 10:16 | PROVIDERS: Visit Provider Orthopaedic Surgery | DX: S82.002A Unspecified fracture of left patella, initial encounter for closed fracture (principal) | CPT/HCPCS: 97760 ==

== ENCOUNTER → 2018-10-14 09:15 | Outpatient (CLI) | payer MEDICARE, MEDICAID, SELFPAY ==
--- NOTE | 2018-10-14 09:20 | XR_ITS ---
XR knee LT 2V HISTORY: Follow-up ORIF patellar fracture ITS.REASON: sp ORIF LT patella sx 09/05/18 ORDERING PHYSICIAN: Charley Nicole MD PATIENT AGE: 77 years COMPARISON: 09/16/2018 FINDINGS: Status post ORIF transverse patellar fracture. 2 screws with cerclage wire remains in place stabilizing the nondisplaced transverse fracture of the patella which is in good alignment. Fracture line is less distinct suggesting healing. IMPRESSION: Good alignment status post ORIF healing patellar fracture
== END ==
PROVIDERS: PCP Family Medicine; Visit Provider Orthopaedic Surgery
DX: S82.002A Unspecified fracture of left patella, initial encounter for closed fracture (principal); Z47.89 Encounter for other orthopedic aftercare
CPT/HCPCS: 73560

== ENCOUNTER → 2018-11-14 09:09 | Outpatient (CLI) | payer MEDICARE, MEDICAID, SELFPAY ==
--- NOTE | 2018-11-14 09:14 | XR_ITS ---
XR patella LT 2V CLINICAL INDICATION: Follow-up patellar fracture ITS.REASON: AP, Lateral weight bearing out of brace ORDERING PHYSICIAN: Charley Nicole MD PATIENT AGE: 78 years Comparison: 10/14/2018 FINDINGS: Status post ORIF patellar fracture with 2. Vertical screws with a cerclage wire. There remains good alignment. Fracture line is somewhat less apparent. IMPRESSION: Good alignment status post ORIF healing patellar fracture
== END ==
PROVIDERS: PCP Family Medicine; Visit Provider Orthopaedic Surgery
DX: S82.002A Unspecified fracture of left patella, initial encounter for closed fracture (principal)
CPT/HCPCS: 73560

== ENCOUNTER → 2018-12-12 09:46 | Outpatient (CLI) | payer MEDICARE, MEDICAID, SELFPAY ==
--- NOTE | 2018-12-12 09:51 | XR_ITS ---
XR patella LT 2V CLINICAL INDICATION: Follow-up surgery ITS.REASON: ap lateral weightbearing out of brace ORDERING PHYSICIAN: Charley Nicole MD PATIENT AGE: 78 years Comparison: 11/14/2018 FINDINGS: Status post ORIF patellar fracture with cerclage wires and screws with persistent barely visible fracture line not significant change. IMPRESSION: No change status post ORIF patellar fracture with good alignment
== END ==
PROVIDERS: PCP Family Medicine; Visit Provider Orthopaedic Surgery
DX: S82.002A Unspecified fracture of left patella, initial encounter for closed fracture (principal)
CPT/HCPCS: 73560

== ENCOUNTER → 2019-01-03 15:43 | Outpatient (CLI) | payer MEDICARE, MEDICAID, SELFPAY ==
--- NOTE | 2019-01-03 15:45 | XR_ITS ---
XR DEXA axial skeleton HISTORY: ITS.REASON: surgial planning ORDERING PHYSICIAN: Jazmin Rocha DPM PATIENT AGE: 78 years COMPARISON: None FINDINGS: The BMD measured at the Left femoral neck is 0.791 g/cm squared with a T score of -1.8. This is considered Osteopenic according to the World Health Organization criteria. Fracture risk is Moderate. Treatment is advised. L1 L4 density has a T score of -0.4. There is lumbar scoliosis convex right IMPRESSION: Osteopenia with moderate fracture risk. Treatment is advised. Suggest follow up exam december 2020 Lumbar scoliosis convex right
[2019-01-03 17:26] LABS: Basophils % 0.4 % (0.1-2.0); Eosinophils # 0.1 K/mm3 (0.0-0.4); Eosinophils % 1.2 % (0.1-12.0); Hemoglobin 12.5 g/dL (12.2-16.2); Lymphocytes # 1.7 K/mm3 (0.7-4.5); Lymphocytes % 28.1 % (10-50); Mean Corpuscular HGB Conc 33.7 g/dL (31.8-35.4); Mean Corpuscular Hemoglobin 28.5 pg (27.0-31.2); Mean Corpuscular Volume 84.5 fl (81-99); Mean Platelet Volume 6.5 fl (7.4-10.4); Monocytes # 0.3 K/mm3 (0.1-1.0); Monocytes % 4.6 % (1.7-9.3); Neutrophils # 3.9 K/mm3 (1.8-7.8); Neutrophils % 65.8 % (37.0-80.0); Platelet Count 331 K/mm3 (142-424); Red Blood Count 4.38 M/mm3 (4.20-5.40); Red Cell Distribution Width 13.3 % (11.5-17.5)
[2019-01-03 18:58] LABS: Anion Gap 17.1 mEq/L (5-15); Blood Urea Nitrogen 13 mg/dL (7-18); Calcium 9.8 mg/dL (8.5-10.1); Carbon Dioxide 27 mmol/L (21.0-32.0); Chloride 102 mmol/L (98-107); Creatinine,Serum 0.85 mg/dL (0.55-1.02); Estimated Glomerular Filt Rate 65 ml/min (>60); GFR (African American) 79 ML/MIN (>60); Glucose 87 mg/dL (74-106); Potassium 4.1 mmoL/L (3.5-5.1); Sodium 142 mmol/L (136-145)
[2019-01-05 08:32] LABS: Vitamin D 25 Hydroxy 55.9 ng/mL (30.0-100.0)
== END ==
PROVIDERS: PCP Family Medicine; Visit Provider Podiatrist
DX: Z01.818 Encounter for other preprocedural examination (principal); S92.352A Displaced fracture of fifth metatarsal bone, left foot, initial encounter for closed fracture; M85.89 Other specified disorders of bone density and structure, multiple sites
CPT/HCPCS: 36415; 77080; 80048; 82652; 85025; 93005

== ENCOUNTER → 2019-01-25 15:38 | Outpatient (CLI) | payer MEDICARE, MEDICAID, SELFPAY ==
--- NOTE | 2019-01-25 15:42 | XR_ITS ---
XR foot wt bearing LT 3V HISTORY: Follow-up fracture ITS.REASON: postop views ORDERING PHYSICIAN: Jazmin Rocha DPM PATIENT AGE: 78 years COMPARISON: 01/04/2019 FINDINGS: There is a posterior splint in place which obscures bony detail. A bone plate is present over the mid aspect of the fifth metatarsal laterally with good alignment. IMPRESSION: Good alignment status post ORIF fifth metatarsal
== END ==
PROVIDERS: PCP Family Medicine; Visit Provider Podiatrist
DX: Z98.890 Other specified postprocedural states (principal)
CPT/HCPCS: 73630

== ENCOUNTER → 2019-02-16 15:40 | Outpatient (CLI) | payer MEDICARE, MEDICAID, SELFPAY ==
--- NOTE | 2019-02-16 15:50 | XR_ITS ---
XR foot wt bearing LT 3V HISTORY: Follow-up surgery, ORIF fifth metatarsal ITS.REASON: Post-op views ORDERING PHYSICIAN: Jazmin Rocha DPM PATIENT AGE: 78 years COMPARISON: 01/25/2019 FINDINGS: The splint has been removed. There is good alignment of the fifth metatarsal fracture with a lateral bone plate present. Fracture lines are still visible. There is diffuse osteopenia. IMPRESSION: Good alignment status post ORIF fifth metatarsal fracture
== END ==
PROVIDERS: PCP Family Medicine; Visit Provider Podiatrist
DX: Z98.890 Other specified postprocedural states (principal); M79.672 Pain in left foot
CPT/HCPCS: 73630

== ENCOUNTER → 2019-03-13 14:48 | Outpatient (CLI) | payer MEDICARE, MEDICAID, SELFPAY ==
--- NOTE | 2019-03-13 14:55 | XR_ITS ---
XR foot wt bearing LT 3V HISTORY: Follow-up surgery ITS.REASON: psot-op ORDERING PHYSICIAN: Jazmin Rocha DPM PATIENT AGE: 78 years COMPARISON: 02/16/2019 FINDINGS: No change lateral bone plate overlying the fifth metatarsal with good alignment. Fracture line appears somewhat less apparent Diffuse osteopenia noted not significant change. IMPRESSION: No change good alignment status post ORIF fifth metatarsal fracture
== END ==
PROVIDERS: PCP Family Medicine; Visit Provider Podiatrist
DX: Z98.890 Other specified postprocedural states (principal)
CPT/HCPCS: 73630

== ENCOUNTER 2020-06-12 16:38 | Emergency (ER) | payer MEDICARE, MEDICAID, SELFPAY ==
[2020-06-12 16:56] VITALS: BP 148/119; PULSE 84; RESP 18; TEMP 36.7; O2SAT 99; BMI 22.6
--- NOTE | 2020-06-12 16:59 | XR_ITS ---
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 No acute ankle fracture or dislocation. On the lateral view of the ankle there is a lucency along the dorsal and distal aspect of the talus. This is not confirmed on the foot image and could be due to lucency at the base of an osteophyte. An avulsion fracture is also consideration. Please correlate with patient's area of pain and tenderness. CT may provide further evaluation if clinical findings are indeterminate. No other significant anomalies are evident. There has been prior ORIF of the 5th metatarsal with a bone plate present. IMPRESSION: Possible avulsion fracture along the dorsal distal aspect of the talus with osteoarthritic changes of the ankle and prior ORIF of the 5th metatarsal. Dictated by: Wing Christopher MD 06/13/2020 05:56 Wing Christopher MD in [place] 06/13/2020 05:56
--- NOTE | 2020-06-12 17:08 | HMH.EDUTC ---
[facility] [place] Clinical Impression: Ankle sprain Qualifiers: Encounter type: initial encounter Involved ligament of ankle: other ligament Laterality: left Qualified Code(s): S93.492A - Sprain of other ligament of left ankle, initial encounter Disposition: Home, Self-Care Condition on Discharge: Good Instructions: DI for Ankle Sprain, Ankle Sprain, How To Perform RICE (Rest, Ice, Compress, Elevate), How to Apply an John Wrap Additional Instructions: *weight bearing as tolerated *RICE, Rest the extremity, Ice 15-20 minutes 3-4 times daily, Compress- wear the john wrap as discussed as much as possible to help reduce swelling and pain, Elevate the extremity when at rest *John wrap is for support and help control swelling, use it except in the shower. Be sure that is not to tight but not to loose either *Elevate when resting *Ibuprofen every 6-8 hours as needed for pain an inflammation if your doctor has told you that you can take it. If need something more can take Tylenol in between doses of Ibuprofen to help Referrals: Jazmin Rocha DPM [Staff Physician] - As needed (Call for appointment if pain continues) Wenceslao Moseley MD [Primary Care Provider] - As needed Medical Decision Making - Adrian Inquiry Pt receiving controlled substance: No Adrian was queried for this patient: No Vital Signs: 06/12/20 16:56 Temperature 98.1 F Temperature Source Oral Pulse Rate [Radial] 84 Respiratory Rate 18 Blood Pressure [Right Arm] 148/119 H Blood Pressure Mean [Right Arm] 128 Blood Pressure Source [Right Arm] Automatic Cuff Blood Pressure Position [Right Arm] Sitting 02 Sat by Pulse Oximetry 99 Oxygen Delivery Method Room Air Orders (Tests/Meds): ORDERS Category Date Time Status Foot XR left minimum 3 views [XR foot LT min 3V] Stat Exams 06/12/20 16:59 Ordered XR ankle LT min 3V Stat Exams 06/12/20 16:59 Ordered - Radiology Data #1 Image(s): Ankle Image Reviewed: Yes I reviewed the patient's radiology image Preliminary Findings: No Fracture Seen #2 Image(s): Foot/Toes Image Reviewed: Yes I reviewed the patient's radiology image Preliminary Findings: No Fracture Seen [facility] [place] HPI - General Stated complaint: AO 1104@1400 fell Left foot/knee Time Seen by Provider: 06/12/20 17:08 Mode of Arrival: Ambulatory Source of Information: Patient Limitations: No Limitations Description of Symptoms (Recalled from Triage Doc. by RN): States she fell this morning when the gravel moved under feet. Left ankle pain. HEENT Symptoms (Recalled from RN notes): No Resp Symptoms (Recalled from RN notes): No Skin Symptoms (Recalled from RN notes): No MS Symptoms (Recalled from RN notes): Yes Functional Status (Recalled from RN notes): wnl - History of Present Illness Provider Complaint: Patient states that she was taking the garbage out earlier when she slipped in the gravel and hurt her left ankle States that she ever since she has been having pain States that she has continued to have pain throughout the day so she came in to get it checked States that she has been able to walk on it just hurts States that she has previously fractured the ankle and was worried that she may have broke it again - Related Data Home Medications Medication Instructions Recorded Confirmed Ergocalciferol (Vitamin D2) 50,000 unit PO QWEEK 12/30/18 05/11/19 [Drisdol] Allergies Allergy/AdvReac Type Severity Reaction Status Date / Time No Known Allergies Allergy Verified 05/11/19 15:06 - Worker's Comp Is this a Worker's Comp case?: No [facility] History - Hepatitis A Screen Drug use history?: No High risk sexual behaviors?: No History of sexually transmitted infection?: No Currently employed?: No Childcare worker?: No Do you have indoor plumbing?: Yes Do you have electricity?: Yes Attestation statement:: This patient has been screened for Hepatitis A risk factors. I have reviewed the patient's past medical history:
[2020-06-12 17:36] VITALS: BP 148/119; PULSE 84; RESP 18; TEMP 36.7; O2SAT 99
== END 2020-06-12 17:38 | disposition home or self-care (01) ==
PROVIDERS: Emergency Provider Nurse Practitioner; PCP Family Medicine
DX: S93.492A Sprain of other ligament of left ankle, initial encounter (principal); W01.0XXA Fall on same level from slipping, tripping and stumbling without subsequent striking against object, initial encounter; Y92.014 Private driveway to single-family (private) house as the place of occurrence of the external cause
CPT/HCPCS: G0463; 73610; 73630; 99201